=== PATIENT | male | born 1950 | race Caucasian/White ===

== ENCOUNTER → 2018-05-15 | Outpatient (CLI) | payer OTHER, BC ==
[~2018-05-15] MED LIST: DEMADEX20 MG PO; ELIQUIS5 MG PO; LASIX 20 MG TAB20 MG PO; LIPITOR 20 MG T20 M1 PO; LOPRESSOR100 M1 PO; POTASSIUM20 PO
[2018-05-15 08:03] LABS: CREATININE 0.9 mg/dL (0.7-1.3)
== END ==
LOC: CAT 07:33
PROVIDERS: Internal Medicine Cardiovascular Disease
DX: I48.91 Unspecified atrial fibrillation (principal); I25.10 Atherosclerotic heart disease of native coronary artery without angina pectoris; M47.814 Spondylosis without myelopathy or radiculopathy, thoracic region

== ENCOUNTER 2018-05-17 06:31 | Observation (INO) | payer OTHER, BC ==
[~2018-05-17] VITALS: Ht 172.7 cm; Wt 94.5 kg
[2018-05-17] MEDS ORDERED: POTASSIUM20 PO (06:53)
[2018-05-17] MEDS ORDERED: DEMADEX20 MG PO (06:53)
[2018-05-17] MEDS ORDERED: LASIX 20 MG TAB20 MG PO (06:53)
[2018-05-17] MEDS ORDERED: LOPRESSOR100 M1 PO (06:54)
[2018-05-17 07:14] VITALS: BP 117/65
[2018-05-17] MEDS ORDERED: ELIQUIS5 MG PO (07:22)
[2018-05-17] MEDS ORDERED: LIPITOR 20 MG T20 M1 PO (07:22)
[2018-05-17 07:23] LABS: ABSOLUTE NEUTROPHILS 4.1 thou/uL (1.4-8.2); BASOPHILS 1.3 % (0.0-2.0); HEMATOCRIT 35.2 % (42.0-52.0); HEMOGLOBIN 12.2 gm/dL (14.0-18.0); LYMPHOCYTES 20.6 % (24.0-44.0); MCHC 34.6 g/dL (28.0-37.0); MCV 104.1 fL (80.0-100.0); MONOCYTES 9.8 % (1.0-8.0); PLATELET COUNT 132 thou/uL (150-400); POLYS 66.3 % (36.0-66.0); RBC 3.38 mil/uL (4.50-6.00); RDW 12.8 % (10.5-14.5); WBC 6.2 thou/uL (4.0-11.0)
[2018-05-17 07:33] LABS: CALCIUM 9.3 mg/dL (8.5-10.1); CREATININE 0.9 mg/dL (0.7-1.3); POTASSIUM 3.4 mmol/L (3.5-5.1)
[2018-05-17 07:37] LABS: APTT 26.2 Seconds (24.5-32.8); PROTIME 10.5 Seconds (9.3-11.4)
[2018-05-17 07:38] LABS: ALBUMIN 3.1 g/dL (3.4-5.0); TOTAL BILIRUBIN 0.4 mg/dL (<0.1-1.0); TOTAL PROTEIN 6.5 g/dL (6.4-8.2)
--- NOTE | 2018-05-17 16:55 | NUR ---
PT TO THE UNIT POST ABLATION - ORINETED TO ROOM AND BEDSPACE. GROIN SITE HAS BEEN STABLE POST PROCEDURE - VSS. NO CO'S OF NAUSEA - PRANAY DIET AND FLUIDS - PT HAVING SHARP PAIN IN L HEEL STATES HE HAD THIS AFTER HIS HIP SURGERY AND IT DID GO AWAY ONC ABLE TO MOVE. ASSESSMENT CHARTED . NO CO'S AT THE PRESENT TIME.
[2018-05-17 19:11] VITALS: BP 97/63
[2018-05-18 05:41] VITALS: BP 111/69
--- NOTE | 2018-05-18 06:21 | NUR ---
ASSUMED PT CARE AT 1900 WITH NO SIGN OF DISTRESS NOTED IN PT. PT IS STABLE AND GROIN SITE IS INTACT, NO BLEEDING OR HEMATOMA. SCHEDULED MEDS AMDINISITERED TO PT, DENIES ANY FUTRHER NEEDS AT THIS TIME. PT IS OFF BEDREST AND TOLERATED SAFE AMBULATION. DENIES ANY FURTHER NEEDS AT THIS TIME.
[2018-05-18 07:45] VITALS: BP 120/66
[2018-05-18 10:18] VITALS: BP 122/66
--- NOTE | 2018-05-18 11:32 | NUR ---
ASSESSMENT CHARTED - MEDS PER APR - NO CO'S OF PAIN OR NAUSEA - PRANAY DIET AND FLUIDS. UP AD LI IN ROOM GROIN SITE STABLE VSS. PT HOME THIS AM 0- INSTRUCTION RE HOME/MEDS/CARE GIVEN TO APTIENT - PT LEFT INSTRUCTIONS ON THE UNIT - THESE HAVE BEEN MAILED TO HIM AND PATIENT NOTIFIED BY HOME AND CELL PHONE THAT THESE WERE LEFT AND MAILED. PT LEFT UNIT AMBULATORY OFFERED WHEELCHAIR - REFUSED. LEFT UNIT ACCOMPANIED BY NURSE - HOME VIA PVT VEHICLE ACCOMPANINED BY JIM. NO CO'S AT TIME OF D/C.
== END 2018-05-18 11:15 | disposition home or self-care (01) ==
LOC: CATH 06:31 → 2N 13:18
PROVIDERS: ADMIT Internal Medicine Cardiovascular Disease
DX: I48.91 Unspecified atrial fibrillation (principal); I42.0 Dilated cardiomyopathy
CPT/HCPCS: 62110; 62900; 65020; 65040; 70005